=== PATIENT | male | born 1980 | race African-American/Black ===

== ENCOUNTER 2019-03-20 02:10 | Inpatient (IN) | payer OTHER ==
--- NOTE | 2019-03-20 02:15 | PDOC ---
History of Present Illness - General Stated Complaint: ALCOHOL WITHDRAWAL Time Seen by Provider: 03/20/19 02:13 - History of Present Illness Initial Comments: 03/20/19 02:13 Mr. Reyes is a 38 yo male w/ pmh of alcohol abuse and depression who presents for evaluation from detox facility for concerns of withdrawal. Patient reporting he feels anxious. Denies any auditory or visual hallucinations. Last drink approximately this time yesterday morning. Patient reports he typically drinks 8, 24oz beers / day. Denies other drug use. Endorses current headache. Had several episodes of N/V today. The patient denies chest pain, shortness of breath, and dizziness. Denies fever , chills, diarrhea and constipation. Denies dysuria, frequency, urgency and hematuria. Past History - Past Medical History Allergies/Adverse Reactions: Allergies Allergy/AdvReac Type Severity Reaction Status Date / Time No Known Allergies Allergy Verified 03/20/19 02:27 Home Medications: Ambulatory Orders NK [No Known Home Medication] 10/26/15 Anemia: No Asthma: No Cancer: No Cardiac Disorders: No CVA: No COPD: No CHF: No Dementia: No Diabetes: No GI Disorders: No Disorders: No HTN: No Hypercholesterolemia: No Kidney Stones: No Liver Disease: No Seizures: No Thyroid Disease: No - Surgical History Abdominal Surgery: No Appendectomy: No Cardiac Surgery: No Cholecystectomy: No Lung Surgery: No Neurologic Surgery: No Orthopedic Surgery: No - Reproductive History Testicular Surgery: No - Psycho Social/Smoking Cessation Hx Smoking History: Current every day smoker Have you smoked in the past 12 months: Yes Number of Cigarettes Smoked Daily: 5 'Breaking Loose' booklet given: 03/20/19 Hx Alcohol Use: Yes Drug/Substance Use Hx: Yes Substance Use Type: Alcohol, Marijuana Hx Substance Use Treatment: Yes ([facility]) Review of Systems - Review of Systems Comments:: 03/20/19 02:14 GENERAL/CONSTITUTIONAL: No fever or chills. No weakness. HEAD, EYES, EARS, NOSE AND THROAT: No change in vision. No ear pain or discharge. No sore throat. CARDIOVASCULAR: No chest pain or shortness of breath RESPIRATORY: No cough, wheezing, or hemoptysis. GASTROINTESTINAL: +N/V as described. No diarrhea or constipation. GENITOURINARY: No dysuria, frequency, or change in urination. MUSCULOSKELETAL: No joint or muscle swelling or pain. No neck or back pain. SKIN: No rash NEUROLOGIC: +Current headache. No vertigo, loss of consciousness, or change in strength/sensation. ENDOCRINE: No increased thirst. No abnormal weight change HEMATOLOGIC/LYMPHATIC: No anemia, easy bleeding, or history of blood clots. ALLERGIC/IMMUNOLOGIC: No hives or skin allergy. *Physical Exam - Physical Exam Comments: 03/20/19 02:14 GENERAL: Awake, alert, and fully oriented, in no acute distress HEAD: No signs of trauma, normocephalic, atraumatic EYES: PERRLA, EOMI, sclera anicteric, conjunctiva clear ENT: Auricles normal inspection, hearing grossly normal, nares patent, oropharynx clear without exudates. Moist mucosa NECK: Normal ROM, supple, no lymphadenopathy, JVD, or masses LUNGS: No distress, speaks full sentences, clear to auscultation bilaterally HEART: Regular rate and rhythm, normal S1 and S2, no murmurs, rubs or gallops, peripheral pulses normal and equal bilaterally. ABDOMEN: Soft, nontender, normoactive bowel sounds. No guarding, no rebound. No masses EXTREMITIES: Normal inspection, Normal range of motion, no edema. No clubbing or cyanosis. NEUROLOGICAL: Cranial nerves II through XII grossly intact. Normal speech, normal gait, no focal sensorimotor deficits SKIN: Warm, Dry, normal turgor, no rashes or lesions noted. ED Treatment Course - LABORATORY CBC & Chemistry Diagram: 03/20/19 03:00 03/20/19 03:00 Medical Decision Making - Medical Decision Making 03/20/19 02:47 Mr. Reyes is a 38 yo male w/ pmh as described who presents for evaluation of alcohol withdrawal from detox facility. Patient will be medically managed. Workup pending. 03/20/19 04:32 Labs grossly wnl as below. Patient EKG normal sinus. CXR negative. Patient will be admitted for withdrawal medical management. Laboratory Results - last 24 hr 03/20/19 03/20/19 03/20/19 03:00 03:00 03:00 WBC 4.6 RBC 5.41 Hgb 14.1 Hct 43.9 MCV 81.1 MCH 26.0 MCHC 32.1 RDW 15.2 Plt Count 208 D MPV 9.3 Absolute Neuts (auto) 2.8 Neutrophils % 60.3 Lymphocytes % 27.9 Monocytes % 9.1 Eosinophils % 2.5 Basophils % 0.2 Nucleated RBC % 0 Sodium 137 Potassium 4.1 Chloride 98 Carbon Dioxide 32 Anion Gap 7 L BUN 15.8 Creatinine 0.9 Est GFR (CKD-EPI)AfAm 125.13 Est GFR (CKD-EPI)NonAf 107.97 Random Glucose 94 Calcium 9.1 Total Bilirubin 0.7 AST 22 ALT 23 Alkaline Phosphatase 95 Troponin I < 0.02 Total Protein 7.6 Albumin 3.8 Salicylates < 1.7 L Acetaminophen <2.0 Alcohol, Quantitative < 3.0 03/20/19 05:59 Patient admitted to hospitalist team for further evaluation. *DC/Admit/Observation/Transfer Diagnosis at time of Disposition: Alcohol dependence with uncomplicated withdrawal - Discharge Dispostion Decision to Admit order: Yes - Referrals - Patient Instructions - Post Discharge Activity CIWA Score Nausea/Vomitin Muscle Tremors: 4-Moderate,w/Arms Extend Anxiety: 4-Mod. Anxious/Guarded Agitation: 0-Normal Activity Paroxysmal Sweats: No Perspiration Orientation: 0-Oriented Tacttile Disturbances: 2-Mild Itch/Numbness/Burn Auditory Disturbances: 0-None Visual Disturbances: 0-None Headache: 3-Moderate CIWA-Ar Total Score: 18 - Admission Criteria [facility]AS[facility] Guidelines: Admission for Medically Managed Detox: Requires at least one of the followin. CIWA greater than 12 2. Seizures within the past 24 hours 3. Delirium tremens within the past 24 hours 4. Hallucinations within the past 24 hours 5. Acute intervention needed for co occurring medical disorder 6. Acute intervention needed for co occurring psychiatric disorder 7. Severe withdrawal that cannot be handled at a lower level of care (continued vomiting, continued diarrhea, abnormal vital signs) requiring intravenous medication and/or fluids 8. Patient presents the following: CIWA greater than 12 Admission Criteria Met: Admission criteria met
--- NOTE | 2019-03-20 02:22 | PDOC ---
Attending Attestation - Resident Resident Name: AmarinellyCarlos - ED Attending Attestation I have performed the following: I have examined & evaluated the patient, The case was reviewed & discussed with the resident, I agree w/resident's findings & plan - HPI HPI: 03/20/19 03:07 see resident - Physicial Exam PE: 03/20/19 03:08 agree with resident exam - Medical Decision Making 03/20/19 03:09 38 yo male with ETOH withdrawal sent from [facility] for eval initial CIWA 20 plan for medical admit
[2019-03-20] MEDS ORDERED: SODIUM CHLORIDE 1,000 ML IV STA (02:23)
[2019-03-20 02:27] VITALS: BMI 24.9
[2019-03-20] MEDS ORDERED: chlordiazePOXIDE HCL 25 MG CAPSULE PO ONE (02:30)
[2019-03-20] MEDS ORDERED: chlordiazePOXIDE HCL 25 MG CAPSULE ONE ×2 (02:52→12:59)
[2019-03-20] MEDS ORDERED: LORazepam 2 MG/ML SDV VIAL ONE (02:56)
[2019-03-20 03:56] LABS: BASO % 0.2 % (0-2.0); EOS % 2.5 % (0-4.5); HEMATOCRIT 43.9 % (35.4-49); HEMOGLOBIN 14.1 GM/dL (11.7-16.9); LYMPH % 27.9 % (8-40); MCHC 32.1 g/dl (32.0-35.9); MEAN CELL VOLUME 81.1 fl (80-96); MEAN PLT VOLUME 9.3 fl (7.5-11.1); MONO % 9.1 % (3.8-10.2); NEUT % 60.3 % (42.8-82.8); PLATELET COUNT 208 K/MM3 (134-434); RBC 5.41 M/mm3 (4.00-5.60); RDW 15.2 % (11.9-15.9); WHITE BLOOD COUNT 4.6 K/mm3 (4.0-10.0)
[2019-03-20 04:12] LABS: ALBUMIN 3.8 g/dl (3.4-5.0); ALK PHOS 95 U/L (45-117); ANION GAP 7 MMOL/L (8-16); BILIRUBIN,TOTAL 0.7 mg/dL (0.2-1); BLOOD UREA NITROGEN 15.8 mg/dL (7-18); CALCIUM 9.1 mg/dL (8.5-10.1); CHLORIDE 98 mmol/L (98-107); CO2 32 mmol/L (21-32); CREATININE 0.9 mg/dL (0.55-1.3); GLUCOSE,RANDOM 94 mg/dL (74-106); POTASSIUM 4.1 mmol/L (3.5-5.1); SGOT/AST 22 U/L (15-37); SGPT/ALT 23 U/L (13-61); SODIUM 137 mmol/L (136-145); TOT PROT 7.6 g/dl (6.4-8.2)
[2019-03-20] MEDS ORDERED: FOLIC ACID INJECTION - 1 MG, THIAMINE HCL 100 MG, MULTIVIT INJECTION ADULT 10 ML in SOD... IVPB ONE (05:07)
[2019-03-20] MEDS ORDERED: chlordiazePOXIDE HCL 10 MG CAPSULE PO PRN (05:08)
--- NOTE | 2019-03-20 05:09 | PN ---
Teaching Attending Note Name of Resident: Mireya Loja ATTENDING PHYSICIAN STATEMENT I saw and evaluated the patient. I reviewed the resident's note and discussed the case with the resident. I agree with the resident's findings and plan as documented. SUBJECTIVE: 38 yo male w/ alcohol abuse and depression sent from detox facility for concerns of withdrawal. Patient reporting he feels anxious. Denies any auditory or visual hallucinations. Last drink approximately this time yesterday morning. Patient reports he typically drinks 8, 24oz beers/ day. Denies other drug use. OBJECTIVE: Last Vital Signs Temp Pulse Resp BP Pulse Ox 98.3 F 95 H 18 165/100 100 03/20/19 02:25 03/20/19 02:25 03/20/19 02:25 03/20/19 02:25 03/20/19 03:49 gen -nontoxic, sleepy heent -ac, moist mucous membranes cv-s1+s2+rrr chest clear abd -soft, nt ext - no edema Abnormal Lab Results 03/20/19 03/20/19 03:00 03:00 Anion Gap 7 L Salicylates < 1.7 L imaging reviewed ASSESSMENT AND PLAN: etoh withdrawal -med/surg -bed rest, fall precautions -ciwa -iv fluid -banana bag -mv -thiamine -folate -librium detox protocol -ekg -advance diet -urine drug screen -dvt ppx
--- NOTE | 2019-03-20 05:18 | HP ---
CHIEF COMPLAINT: EtOH WD PCP: none HISTORY OF PRESENT ILLNESS: 38 y.o. M PMH EtOH abuse and depression presenting from [facility] ED for EtOH withdrawal. [facility] out of beds so patient sent to [facility]. As per patient his last drink was yesterday in the morning. Pt endorses drinking 3 8oz drinks of hard liquor daily. Says he completed a detox program in the past but has since relapsed. Patient says he did not lose consciousness from drinking too much and never fell down/ hit his head. Never had seizures from WD in the past. He has been tremulous for the past few hours which prompted him to seek medical care. Reports moderate anxiety as well. Denies current CP/ SOB/ HENDERSON/ N/V/D/ feevrs/ chills/ parasthesias. ER course was notable for: (1) BP 156/108---- 165/100 (2) 1L bolus NS; 2mg Ativan; 1 dose 25mg Librium (3) EKG NSR Recent Travel: denies PAST MEDICAL HISTORY: EtOH abuse, depression PAST SURGICAL HISTORY: denies Social History: previously incarcerated, released november 2018 Smoking: denies Alcohol: 3 8oz drinks of hard liquor daily Drugs: denies Allergies No Known Allergies Allergy (Verified 03/20/19 02:27) HOME MEDICATIONS: Home Medications Medication Instructions Recorded NK [No Known Home Medication] 10/26/15 REVIEW OF SYSTEMS CONSTITUTIONAL: Absent: fever, chills, diaphoresis, generalized weakness, malaise, loss of appetite, weight change HEENT: Absent: rhinorrhea, nasal congestion, throat pain, throat swelling, difficulty swallowing, mouth swelling, ear pain, eye pain, visual changes CARDIOVASCULAR: Absent: chest pain, syncope, palpitations, irregular heart rate, lightheadedness , peripheral edema RESPIRATORY: Absent: cough, shortness of breath, dyspnea with exertion, orthopnea, wheezing, stridor, hemoptysis GASTROINTESTINAL: Absent: abdominal pain, abdominal distension, nausea, vomiting, diarrhea, constipation, melena, hematochezia GENITOURINARY: Absent: dysuria, frequency, urgency, hesitancy, hematuria, flank pain, genital pain MUSCULOSKELETAL: Absent: myalgia, arthralgia, joint swelling, back pain, neck pain SKIN: Absent: rash, itching, pallor HEMATOLOGIC/IMMUNOLOGIC: Absent: easy bleeding, easy bruising, lymphadenopathy, frequent infections ENDOCRINE: Absent: unexplained weight gain, unexplained weight loss, heat intolerance, cold intolerance NEUROLOGIC: Absent: headache, focal weakness or paresthesias, dizziness, unsteady gait, seizure, mental status changes, bladder or bowel incontinence PSYCHIATRIC: Absent: anxiety, depression, suicidal or homicidal ideation, hallucinations. PHYSICAL EXAMINATION Vital Signs - 24 hr 03/20/19 03/20/19 02:25 03:49 Temperature 98.3 F Pulse Rate 95 H Respiratory 18 Rate Blood Pressure 165/100 O2 Sat by Pulse 100 100 Oximetry (%) GENERAL: Awake, alert, and fully oriented, in no acute distress. HEENT: Conjunctival injection b/l. PERRLA. No tongue fasciculations present. LUNGS: Breath sounds equal, clear to auscultation bilaterally. No wheezes, and no crackles. No accessory muscle use. HEART: Normal S1 and S2 without murmurs. Tachycardic. ABDOMEN: Soft, nontender, not distended, normoactive bowel sounds UPPER EXTREMITIES: 2+ pulses, warm, well-perfused. No cyanosis. No clubbing. No peripheral edema. LOWER EXTREMITIES: 2+ pulses, warm, well-perfused. No calf tenderness. No peripheral edema. NEURO: No tremors w/ outstretched hands (s/p ativan admin) PSYCH: Guarded, anxious. Denies SI/ HI/ tactile disturbances. Laboratory Results - last 24 hr 03/20/19 03/20/19 03/20/19 03:00 03:00 03:00 WBC 4.6 RBC 5.41 Hgb 14.1 Hct 43.9 MCV 81.1 MCH 26.0 MCHC 32.1 RDW 15.2 Plt Count 208 D MPV 9.3 Absolute Neuts (auto) 2.8 Neutrophils % 60.3 Lymphocytes % 27.9 Monocytes % 9.1 Eosinophils % 2.5 Basophils % 0.2 Nucleated RBC % 0 Sodium 137 Potassium 4.1 Chloride 98 Carbon Dioxide 32 Anion Gap 7 L BUN 15.8 Creatinine 0.9 Est GFR (CKD-EPI)AfAm 125.13 Est GFR (CKD-EPI)NonAf 107.97 Random Glucose 94 Calcium 9.1 Total Bilirubin 0.7 AST 22 ALT 23 Alkaline Phosphatase 95 Troponin I < 0.02 Total Protein 7.6 Albumin 3.8 Salicylates < 1.7 L Acetaminophen <2.0 Alcohol, Quantitative < 3.0 ASSESSMENT/PLAN: 38 y.o. M PMH EtOH abuse and depression presenting for EtOH withdrawal. #EtOH withdrawal -CIWA 19 on admission, now CIWA 5 (s/p 2mg ativan); CIWA checks -Banana bag ordered -S/p 1 L NS bolus -Librium protocol initiated -F/u urine toxicology -Monitor vitals -F/u CXR -F/u lipase -Zofran PRN -Aspiration precautions elevate HOB -Fall precautions -Patient denies suicidal/ homicidal ideations; will hold off psych consult at this time -Patient willing to start detox program #Depression -Denies depressing thoughts at this time -Denies SI/HI -Rec outpatient psych f/u #DVT PPX -LVX 40 SQ #FEN -S/p 1L NS, banana bag ordered -Monitor lytes -CLD Visit type - Emergency Visit Emergency Visit: Yes Care time: The patient presented to the Emergency Department on the above date and was hospitalized for further evaluation of their emergent condition. - New Patient This patient is new to me today: Yes Date on this admission: 03/20/19 - Critical Care Critical Care patient: No ATTENDING PHYSICIAN STATEMENT I saw and evaluated the patient. I reviewed the resident's note and discussed the case with the resident. I agree with the resident's findings and plan as documented. SUBJECTIVE: OBJECTIVE: ASSESSMENT AND PLAN:
[2019-03-20] MEDS ORDERED: ONDANSETRON 4 MG/2 ML VIAL IVPUSH ONE (06:14)
[2019-03-20 06:17] LABS: MAGNESIUM 2.3 mg/dL (1.8-2.4); PHOSPHOROUS 3.6 mg/dL (2.5-4.9)
[2019-03-20 06:30] LABS: LIPASE 91 U/L (73-393)
[2019-03-20] MEDS: chlordiazePOXIDE HCL 25 MG CAPSULE PO SCH ×2 (06:30→13:04)
[2019-03-20] MEDS ORDERED: ONDANSETRON 4 MG/2 ML VIAL ONE (06:59)
[2019-03-20] MEDS ORDERED: ENOXAPARIN NA (PORCINE) 40 MG/0.4 ML DISP.SYRIN SQ SCH (10:00)
--- NOTE | 2019-03-20 10:43 | EKG ---
Test Reason : Blood Pressure : / mmHG Vent. Rate : 093 BPM Atrial Rate : 093 BPM P-R Int : 150 ms QRS Dur : 098 ms QT Int : 362 ms P-R-T Axes : 083 084 067 degrees QTc Int : 450 ms NORMAL SINUS RHYTHM NORMAL ECG NO PREVIOUS ECGS AVAILABLE Confirmed by JAQUELINE BLACKMON, BASIL ([id number]) on 03/20/2019 10:43:12 AM Referred By: Confirmed By:BASIL PARSONS MD
[2019-03-20] MEDS ORDERED: ENOXAPARIN NA (PORCINE) 40 MG/0.4 ML DISP.SYRIN SQ ONE (10:44)
[2019-03-20] MEDS ORDERED: SODIUM CHLORIDE 0.9% 500 ML INFUS.BAG IV ONE (12:00)
[2019-03-20 14:57] VITALS: TEMP 98.4
[2019-03-20] MEDS ORDERED: SODIUM CHLORIDE 1,000 ML IV SCH (15:30)
--- NOTE | 2019-03-20 15:54 | DS ---
Physical Exam: SUBJECTIVE: Patient seen and examined OBJECTIVE: Vital Signs Period Temp Pulse Resp BP Sys/Ann Pulse Ox Last 24 Hr 98.3 F-98.4 F 79-96 15-18 149-165/77-100 98-100 PHYSICAL EXAM GENERAL: The patient is awake, alert, and fully oriented, in no acute distress. HEAD: Normal with no signs of trauma. EYES: PERRL, extraocular movements intact, sclera anicteric, conjunctiva clear. ENT: Ears normal, nares patent, oropharynx clear without exudates, moist mucous membranes. NECK: Trachea midline, full range of motion, supple. LUNGS: Breath sounds equal, clear to auscultation bilaterally, no wheezes, no crackles, no accessory muscle use. HEART: Regular rate and rhythm, S1, S2 without murmur, rub or gallop. ABDOMEN: Soft, nontender, nondistended, normoactive bowel sounds, no guarding, no rebound, no hepatosplenomegaly, no masses. EXTREMITIES: 2+ pulses, warm, well-perfused, no edema. NEUROLOGICAL: Cranial nerves II through XII grossly intact. Normal speech, gait not observed. PSYCH: Normal mood, normal affect. SKIN: Warm, dry, normal turgor, no rashes or lesions noted. LABS Laboratory Results - last 24 hr 03/20/19 03/20/19 03/20/19 03:00 03:00 03:00 WBC 4.6 RBC 5.41 Hgb 14.1 Hct 43.9 MCV 81.1 MCH 26.0 MCHC 32.1 RDW 15.2 Plt Count 208 D MPV 9.3 Absolute Neuts (auto) 2.8 Neutrophils % 60.3 Lymphocytes % 27.9 Monocytes % 9.1 Eosinophils % 2.5 Basophils % 0.2 Nucleated RBC % 0 Sodium 137 Potassium 4.1 Chloride 98 Carbon Dioxide 32 Anion Gap 7 L BUN 15.8 Creatinine 0.9 Est GFR (CKD-EPI)AfAm 125.13 Est GFR (CKD-EPI)NonAf 107.97 Random Glucose 94 Calcium 9.1 Phosphorus 3.6 Magnesium 2.3 Total Bilirubin 0.7 AST 22 ALT 23 Alkaline Phosphatase 95 Troponin I < 0.02 Total Protein 7.6 Albumin 3.8 Lipase 91 Salicylates < 1.7 L Acetaminophen <2.0 Alcohol, Quantitative < 3.0 HOSPITAL COURSE: Mr. Reyes is a 38y/o male with ETOH use disorder and depression who presents for alcohol detox after [facility] did not have beds available. He was hypertensive at presentation and CIWA 19. Pt was started on Librium protocol and was transferred to [facility] once bed was available. Date of Admission:03/20/19 Date of Discharge: 03/20/19 Minutes to complete discharge: 35 Discharge Summary Problems reviewed: Yes Reason For Visit: ALCOHOL DEPENDENCE WITH UNCOMPLICAT WITHDRAWAL Current Active Problems Alcohol dependence with uncomplicated withdrawal (Acute) Alcohol dependence (Chronic) Depression (Chronic) Nicotine dependence (Chronic) Condition: Stable - Instructions Diet, Activity, Other Instructions: Hospital Visit: You were admitted to the hospital to begin alcohol detox. You were started on Librium to treat your symptoms. [facility] has availability where you can continue your detox treatment. Medications: You will continue Librium at [facility]. Other instructions: Return to the emergency room if you experience chest pain, shortness of breath, vomiting that cannot be controlled with medication, or hallucinations. Disposition: I.P. ALCOHOL/SUBS ABUSE REHAB - Home Medications Comprehensive Discharge Medication List: Ambulatory Orders NK [No Known Home Medication] 10/26/15 This patient is new to me today: Yes Date on this admission: 03/20/19 Emergency Visit: Yes ED Registration Date: 03/20/19 Care time: The patient presented to the Emergency Department on the above date and was hospitalized for further evaluation of their emergent condition. Critical Care patient: No - Discharge Referral Referred to [facility] Med P.C.: No ATTENDING PHYSICIAN STATEMENT I saw and evaluated the patient. I reviewed the resident's note and discussed the case with the resident. I agree with the resident's findings and plan as documented. SUBJECTIVE: OBJECTIVE: ASSESSMENT AND PLAN:
[2019-03-20 16:52] LABS: COCAINE, UR POSITIVE ng/ml (CUTOFF=300); METHADONE, UR NEGATIVE ng/ml (CUTOFF=300); OPIATES, URI NEGATIVE ng/ml (CUTOFF=300); PHENCYCLIDINE,URINE NEGATIVE ng/ml (CUTOFF=25); URINE AMPHETAMINES POSITIVE ng/ml (CUTOFF=500); URINE BARBITURATES NEGATIVE ng/ml (CUTOFF=200); URINE BENZODIAZEPINES POSITIVE ng/ml (CUTOFF=200)
[2019-03-20 17:29] VITALS: BP 147/93; PULSE 75
--- NOTE | 2019-03-20 20:01 | PN ---
Teaching Attending Note Name of Resident: Kelly De Luna ATTENDING PHYSICIAN STATEMENT I saw and evaluated the patient. I reviewed the resident's note and discussed the case with the resident. I agree with the resident's findings and plan as documented. SUBJECTIVE: No complaints. No hallucinations/diaphoresis/seizures OBJECTIVE: Afebrile, hemodynamically Stable. Last Vital Signs Temp Pulse Resp BP Pulse Ox 98.4 F 75 18 147/93 99 03/20/19 14:56 03/20/19 17:29 03/20/19 17:29 03/20/19 17:29 03/20/19 17:29 HEENT: Atraumatic, Normocephalic. HEART: S1, S2, RRR LUNGS: Clear to auscultation ABDOMEN: Soft, non-tender. Bowel Sounds normal. EXTREMITIES: No edema, no calf tenderness NEURO: Lethargic, rousable. Oriented x 3. Tone/Power normal all extremities. Laboratory Results - last 24 hr 03/20/19 03/20/19 03/20/19 03:00 03:00 03:00 WBC 4.6 RBC 5.41 Hgb 14.1 Hct 43.9 MCV 81.1 MCH 26.0 MCHC 32.1 RDW 15.2 Plt Count 208 D MPV 9.3 Absolute Neuts (auto) 2.8 Neutrophils % 60.3 Lymphocytes % 27.9 Monocytes % 9.1 Eosinophils % 2.5 Basophils % 0.2 Nucleated RBC % 0 Sodium 137 Potassium 4.1 Chloride 98 Carbon Dioxide 32 Anion Gap 7 L BUN 15.8 Creatinine 0.9 Est GFR (CKD-EPI)AfAm 125.13 Est GFR (CKD-EPI)NonAf 107.97 Random Glucose 94 Calcium 9.1 Phosphorus 3.6 Magnesium 2.3 Total Bilirubin 0.7 AST 22 ALT 23 Alkaline Phosphatase 95 Troponin I < 0.02 Total Protein 7.6 Albumin 3.8 Lipase 91 Salicylates < 1.7 L Opiates Screen Methadone Screen Acetaminophen <2.0 Barbiturate Screen Phencyclidine Screen Ur Amphetamines Screen MDMA (Ecstasy) Screen Benzodiazepines Screen Cocaine Screen U Marijuana (THC) Screen Alcohol, Quantitative < 3.0 03/20/19 14:30 WBC RBC Hgb Hct MCV MCH MCHC RDW Plt Count MPV Absolute Neuts (auto) Neutrophils % Lymphocytes % Monocytes % Eosinophils % Basophils % Nucleated RBC % Sodium Potassium Chloride Carbon Dioxide Anion Gap BUN Creatinine Est GFR (CKD-EPI)AfAm Est GFR (CKD-EPI)NonAf Random Glucose Calcium Phosphorus Magnesium Total Bilirubin AST ALT Alkaline Phosphatase Troponin I Total Protein Albumin Lipase Salicylates Opiates Screen Negative Methadone Screen Negative Acetaminophen Barbiturate Screen Negative Phencyclidine Screen Negative Ur Amphetamines Screen Positive A* MDMA (Ecstasy) Screen Negative Benzodiazepines Screen Positive A* Cocaine Screen Positive A* U Marijuana (THC) Screen Positive A* Alcohol, Quantitative Current Medications Generic Name Dose Route Start Last Admin Trade Name Freq PRN Reason Stop Dose Admin Chlordiazepoxide HCl 10 mg 03/22/19 00:00 Librium - PO 03/22/19 23:59 Q12H PRN Signs/symptoms of Withdrawal Chlordiazepoxide HCl 10 mg 03/20/19 05:08 Librium - PO 03/21/19 23:59 Q8H PRN Signs/symptoms of Withdrawal Chlordiazepoxide HCl 25 mg 03/20/19 05:00 03/20/19 13:04 Librium - PO 03/20/19 21:01 25 mg Q8H CARIN Administration Chlordiazepoxide HCl 15 mg 03/21/19 05:00 Librium - PO 03/21/19 21:01 Q8H CARIN Chlordiazepoxide HCl 10 mg 03/22/19 05:00 Librium - PO 03/22/19 21:01 Q8H CARIN Chlordiazepoxide HCl 10 mg 03/23/19 05:00 Librium - PO 03/23/19 05:01 ONCE ONE Enoxaparin Sodium 40 mg 03/20/19 10:00 03/20/19 10:46 Lovenox - SQ 40 mg DAILY CARIN Administration Sodium Chloride 1,000 mls @ 125 mls/hr 03/20/19 15:30 03/20/19 15:40 Normal Saline - IV 125 mls/hr ASDIR CARIN Administration Home Medications Medication Instructions Recorded NK [No Known Home Medication] 10/26/15 ASSESSMENT AND PLAN: 38 year old male with history of Polysubstance Abuse (Alcohol, Benzos, Amphetamines, Cocaine, MJ), Depression, admitted with Alcohol withdrawal symptoms. 1. Acute Alcohol Withdrawal. Librium protocol. s/p Banana Bag MVI, Thiamine, Folic Acid IV hydration ongoing Electrolytes wnl, will monitor. 2. Polysubstance Abuse - MJ, Benozodiazepines, Alcohol, Amphetamines, Cocaine For transfer to [facility] to complete Detox and obtain addiction medicine eval and treatment for polysubstance abuse. Dispo - Transfer to once bed is available.
[2019-03-21] MEDS ORDERED: chlordiazePOXIDE 5 MG CAPSULE PO SCH (05:00)
[2019-03-22] MEDS ORDERED: chlordiazePOXIDE HCL 10 MG CAPSULE PO PRN
[2019-03-22] MEDS ORDERED: chlordiazePOXIDE HCL 10 MG CAPSULE PO SCH (05:00)
[2019-03-23] MEDS ORDERED: chlordiazePOXIDE HCL 10 MG CAPSULE PO ONE (05:00)
== END 2019-03-20 15:54 | disposition other institution (70) | DRG 58 ==
LOC: JER 02:10 → SUATTDRO 02:10 → JERBED 04:33
PROVIDERS: ADMIT Internal Medicine
PROC: HZ2ZZZZ Detoxification Services for Substance Abuse Treatment (ICD-10-PCS; principal; 2019-03-20)
DX: R25.1 Tremor, unspecified (principal); F10.239 Alcohol dependence with withdrawal, unspecified; F12.10 Cannabis abuse, uncomplicated; F14.10 Cocaine abuse, uncomplicated; F41.9 Anxiety disorder, unspecified; F32.9 Major depressive disorder, single episode, unspecified; R11.2 Nausea with vomiting, unspecified; F17.210 Nicotine dependence, cigarettes, uncomplicated; F15.21 Other stimulant dependence, in remission; F13.20 Sedative, hypnotic or anxiolytic dependence, uncomplicated; R19.7 Diarrhea, unspecified
CPT/HCPCS: 36415; 71045-TC-FY; 80053; 80307; 83690; 83735; 84100; 84484; 85025; 93005; 93010; 99283-25; J7030

== ENCOUNTER 2019-03-20 17:36 | Inpatient (IN) | payer OTHER ==
[2019-03-20 18:27] VITALS: BMI 24.9
--- NOTE | 2019-03-20 19:53 | HP ---
CIWA Score Nausea/Vomitin-Mild Nausea/No Vomiting Muscle Tremors: 4-Moderate,w/Arms Extend Anxiety: 1-Mildly Anxious Agitation: 0-Normal Activity Paroxysmal Sweats: 1-Minimal Palms Moist Orientation: 0-Oriented Tacttile Disturbances: 0-None Auditory Disturbances: 0-None Visual Disturbances: 0-None Headache: 4-Moderately Severe CIWA-Ar Total Score: 11 - Admission Criteria OASAS Guidelines: Admission for Medically Managed Detox: Requires at least one of the followin. CIWA greater than 12 2. Seizures within the past 24 hours 3. Delirium tremens within the past 24 hours 4. Hallucinations within the past 24 hours 5. Acute intervention needed for co occurring medical disorder 6. Acute intervention needed for co occurring psychiatric disorder 7. Severe withdrawal that cannot be handled at a lower level of care (continued vomiting, continued diarrhea, abnormal vital signs) requiring intravenous medication and/or fluids 8. Patient presents the following: Acute intervention needed for co-occurring med or psych disorder (Transferred from Ed and given ativan and Librium prior to presentation to [facility] detox.) Admission Criteria Met: Admission criteria met Admission ROS [facility] - [facility] Chief Complaint: I was intoxicated and then started withdrawing and I was medicated in the ER". Allergies/Adverse Reactions: Allergies Allergy/AdvReac Type Severity Reaction Status Date / Time No Known Allergies Allergy Verified 03/20/19 02:27 History of Present Illness: Patient transferred from [facility], after being given ativan and then started on Libruim for alcohol withdrawal and presents for admission to detox. 03/20/19 CBC/Chem labs reviewed. Will not repeat. 03/20/19: EKG - wnl Alcohol use began at age 18. Currently drinks 10-24 oz beers daily. Denies vodka Marijuana use began at age 18. Crystal Meth use began at age 34. States uses/smokes every other day. Nicotine use began at age 18. Currently smokes 1 PPD. PMHx: Darkened skin in BLE. Burning/pain w/ urination x 2 months. MHHx: Depression. Insomnia. Was prescribed Zoloft and Remeron but hasn't taken for 4 months. SHx: Homeless. Unemployed. Search Terms: Ha Reyes, 1980 Search Date: 03/20/2019 08:07:15 PM The Drug Utilization Report below displays all of the controlled substance prescriptions, if any, that your patient has filled in the last twelve months. The information displayed on this report is compiled from pharmacy submissions to the Department, and accurately reflects the information as submitted by the pharmacies. This report was requested by: Jessie Kemp | Reference #: [id number] There are no results for the search terms that you entered. PE from [facility] reviewed and no significant changes. - Review of Systems in ED Comments:: 03/20/19 02:14 GENERAL/CONSTITUTIONAL: No fever or chills. No weakness. HEAD, EYES, EARS, NOSE AND THROAT: No change in vision. No ear pain or discharge. No sore throat. CARDIOVASCULAR: No chest pain or shortness of breath RESPIRATORY: No cough, wheezing, or hemoptysis. GASTROINTESTINAL: +N/V as described. No diarrhea or constipation. GENITOURINARY: No dysuria, frequency, or change in urination. MUSCULOSKELETAL: No joint or muscle swelling or pain. No neck or back pain. SKIN: No rash NEUROLOGIC: +Current headache. No vertigo, loss of consciousness, or change in strength/sensation. ENDOCRINE: No increased thirst. No abnormal weight change HEMATOLOGIC/LYMPHATIC: No anemia, easy bleeding, or history of blood clots. ALLERGIC/IMMUNOLOGIC: No hives or skin allergy. *Physical Exam in ED - Physical Exam Comments: 03/20/19 02:14 GENERAL: Awake, alert, and fully oriented, in no acute distress HEAD: No signs of trauma, normocephalic, atraumatic EYES: PERRLA, EOMI, sclera anicteric, conjunctiva clear ENT: Auricles normal inspection, hearing grossly normal, nares patent, oropharynx clear without exudates. Moist mucosa NECK: Normal ROM, supple, no lymphadenopathy, JVD, or masses LUNGS: No distress, speaks full sentences, clear to auscultation bilaterally HEART: Regular rate and rhythm, normal S1 and S2, no murmurs, rubs or gallops, peripheral pulses normal and equal bilaterally. ABDOMEN: Soft, nontender, normoactive bowel sounds. No guarding, no rebound. No masses EXTREMITIES: Normal inspection, Normal range of motion, no edema. No clubbing or cyanosis. NEUROLOGICAL: Cranial nerves II through XII grossly intact. Normal speech, normal gait, no focal sensorimotor deficits SKIN: Warm, Dry, normal turgor, no rashes or lesions noted. CIWA Score in [facility] ED Nausea/Vomitin Muscle Tremors: 4-Moderate,w/Arms Extend Anxiety: 4-Mod. Anxious/Guarded Agitation: 0-Normal Activity Paroxysmal Sweats: No Perspiration Orientation: 0-Oriented Tacttile Disturbances: 2-Mild Itch/Numbness/Burn Auditory Disturbances: 0-None Visual Disturbances: 0-None Headache: 3-Moderate CIWA-Ar Total Score: 18 - Admission Criteria OASAS Guidelines: Admission for Medically Managed Detox: Requires at least one of the followin. CIWA greater than 12 2. Seizures within the past 24 hours 3. Delirium tremens within the past 24 hours 4. Hallucinations within the past 24 hours 5. Acute intervention needed for co occurring medical disorder 6. Acute intervention needed for co occurring psychiatric disorder 7. Severe withdrawal that cannot be handled at a lower level of care (continued vomiting, continued diarrhea, abnormal vital signs) requiring intravenous medication and/or fluids 8. Patient presents the following: CIWA greater than 12 Admission Criteria Met: Admission criteria met Exam Limitations: No Limitations - Ebola screening Have you traveled outside of the country in the last 21 days: No (N) Have you had contact with anyone from an Ebola affected area: No Do you have a fever: No - Review of Systems Constitutional: See HPI EENT: reports: See HPI Respiratory: reports: See HPI Cardiac: reports: See HPI GI: reports: See HPI : reports: Burning (w/ urination x 2 months. States sexually active w/ inconsistent use of condoms.) Musculoskeletal: reports: See HPI Integumentary: reports: See HPI Neuro: reports: See HPI Endocrine: reports: See HPI Hematology: reports: See HPI Psychiatric: reports: Mood/Affect Appropiate, Orientated x3, Agitated, Anxious, Depressed (Denies thoughts of harming self or others) Patient History - Patient Medical History Hx Anemia: No Hx Asthma: No Hx Chronic Obstructive Pulmonary Disease (COPD): No Hx Cancer: No Hx Cardiac Disorders: No Hx Congestive Heart Failure: No Hx Hypertension: No Hx Hypercholesterolemia: No HX Cerebrovascular Accident: No Hx Seizures: No Hx Dementia: No Hx Diabetes: No Hx Gastrointestinal Disorders: No Hx Liver Disease: No Hx Genitourinary Disorders: No Hx Sexually Transmitted Disorders: No Hx Renal Disease (ESRD): No Hx Thyroid Disease: No Hx Human Immunodeficiency Virus (HIV): No (NEGATIVE 2019) Hx Hepatitis C: No Hx Depression: Yes (NOT CURRENTLY ON MED) Hx Suicide Attempt: No (DENIES SUICIDAL IDEATION AT THIS TIME) Hx Bipolar Disorder: No Hx Schizophrenia: No - Patient Surgical History Past Surgical History: No Hx Neurologic Surgery: No Hx Cataract Extraction: No Hx Cardiac Surgery: No Hx Lung Surgery: No Hx Breast Surgery: No Hx Breast Biopsy: No Hx Abdominal Surgery: No Hx Appendectomy: No Hx Cholecystectomy: No Hx Genitourinary Surgery: No Hx Section: No Hx Orthopedic Surgery: No Anesthesia Reaction: No - PPD History Previous Implant?: Yes Documented Results: Negative w/proof Implanted On Prior R Admission?: Yes Date: 10/28/15 Results: 0 MM PPD to be Administered?: Yes - Smoking Cessation Smoking history: Current every day smoker Have you smoked in the past 12 months: Yes Aproximately how many cigarettes per day: 10 Hx Chewing Tobacco Use: No Initiated information on smoking cessation: Yes 'Breaking Loose' booklet given: 03/20/19 - Substance & Tx. History Hx Alcohol Use: Yes Hx Substance Use: Yes Substance Use Type: Alcohol, Marijuana, Tranquilizers (Methamphetamin) Hx Substance Use Treatment: Yes (detox, ) - Substances abused Alcohol Substance route: Oral Frequency: Daily Amount used: 3 pints of vodka Age of first use: 18 Date of last use: 03/18/19 Admission Physical Exam BHS - Vital Signs Vital Signs: Vital Signs - 24 hr 03/20/19 18:12 Temperature 98.6 F Pulse Rate 88 Respiratory 20 Rate Blood Pressure 148/96 - Physical General Appearance: Yes: Nourished, Mild Distress, Tremorous, Sweating ( Increased facial moisture.) HEENTM: Yes: CACHORRO Respiratory: Yes: Lungs Clear, Normal Breath Sounds, No Respiratory Distress Extremities: Yes: Tremors Neurological: Yes: Fully Oriented, Alert Integumentary: Yes: Normal Color, Warm, Diaphoresis, Other (Thickened, darkened skin BLE) - Diagnostic (1) Methamphetamine dependence Current Visit: Yes Status: Chronic (2) Cannabis dependence, uncomplicated Current Visit: Yes Status: Chronic (3) Alcohol dependence with uncomplicated withdrawal Current Visit: Yes Status: Acute (4) Nicotine dependence Current Visit: Yes Status: Chronic Qualifiers: Nicotine product type: cigarettes Substance use status: uncomplicated Qualified Code(s): F17.210 - Nicotine dependence, cigarettes, uncomplicated (5) Burning with urination Current Visit: Yes Status: Chronic Comment: State burning w/ urination x 2 months. Sexually active. Cleared for Admission S - Detox or Rehab [facility] Level of Care: Medically Managed Detox Regimen/Protocol: Librium Claeared for Rehab Admission: No Breathalyzer - Breathalyzer Breathalyzer: 0 Urine Drug Screen - Test Device Lot number: [id number] Expiration date: 11/23/20 - Control Is test valid?: Yes - Results Drug screen NEGATIVE: No Urine drug screen results: THC-Marijuana, MET-Methamphetamine, BZO- Benzodiazepines Inpatient Rehab Admission - Rehab Decision to Admit Inpatient rehab admission?: No
[2019-03-20] MEDS ORDERED: MAG HYDROX/AL HYDROX/SIMETH 30 ML UNIT-DOSE CUP PO PRN (20:31)
[2019-03-20] MEDS ORDERED: MENTHOL/PHENOL 1 EACH UD MM PRN (20:31)
[2019-03-20] MEDS ORDERED: chlordiazePOXIDE HCL 25 MG CAPSULE PO PRN (20:31)
[2019-03-20] MEDS ORDERED: IBUPROFEN 400 MG TABLET (FP) PO PRN (20:31)
[2019-03-20] MEDS ORDERED: NICOTINE POLACRILEX 2 MG GUM BUC PRN (20:31)
[2019-03-20] MEDS ORDERED: METHOCARBAMOL 500 MG TABLET PO PRN (20:31)
[2019-03-20] MEDS ORDERED: MAGNESIUM CITRATE 300 ML BOTTLE PO PRN (20:31)
[2019-03-20] MEDS ORDERED: MAGNESIUM HYDROX 2400MG/30ML ORAL SUSPENSION 30 ML CUP PO PRN (20:31)
[2019-03-20] MEDS ORDERED: BISMUTH SUBSALICYLATE 524 MG/30 ML UD PO PRN (20:31)
[2019-03-20] MEDS ORDERED: ACETAMINOPHEN 325 MG TABLET (FP) PO PRN ×2 (20:31)
[2019-03-20] MEDS: THIAMINE HCL 100 MG TABLET (FP) PO SCH (21:34)
[2019-03-20] MEDS: MELATONIN 5 MG TABLETS PO PRN (21:35)
[2019-03-20] MEDS: chlordiazePOXIDE HCL 25 MG CAPSULE PO SCH (22:30)
[2019-03-21] MEDS: chlordiazePOXIDE HCL 25 MG CAPSULE PO SCH ×4 (06:21→22:03)
[2019-03-21] MEDS: PRENATAL VITAMINS W/ FOLIC ACID TABLET (FP) PO SCH (10:40)
[2019-03-21] MEDS: NICOTINE 14 MG/24 HOURS TOPICAL PATCH TD SCH (10:42)
--- NOTE | 2019-03-21 12:57 | PN ---
S CIWA - CIWA Score Nausea/Vomitin-Mild Nausea/No Vomiting Muscle Tremors: 3 Anxiety: 4-Mod. Anxious/Guarded Agitation: 3 Paroxysmal Sweats: 2 Orientation: 0-Oriented Tacttile Disturbances: 1-Very Mild Itch/Numbness Auditory Disturbances: 0-None Visual Disturbances: 0-None Headache: 0-None Present CIWA-Ar Total Score: 14 BHS Progress Note (SOAP) Subjective: limited conversation with staff resting on bed comfortably ate breakfast prefer to stay in bed today Objective: 03/21/19 12:57 Vital Signs Temperature 96.7 F L 03/21/19 09:40 Pulse Rate 68 03/21/19 09:40 Respiratory Rate 18 03/21/19 09:40 Blood Pressure 143/84 03/21/19 09:40 O2 Sat by Pulse Oximetry (%) Laboratory Last Values RPR Titer Nonreactive (NONREACTIVE) 03/21/19 08:00 03/21/19 13:00 lab see ER 03/20/19 Assessment: 03/21/19 13:00 return from ER treated with alcohol intoxification doing well with librium detox regimen alert oriented x 3 speech clearly coherently steady gait 03/21/19 13:02 alcohol withdrawal sx Plan: continue librium detox regimen
--- NOTE | 2019-03-21 14:08 | CONSULT ---
[facility] Psychiatric Consult - Data Date of interview: 03/21/19 Admission source: [facility] Identifying data: Patient is a 38 year old single male, father of one, unemployed, homeless, and is not receiving financial assistance. This is patient's first admission to detox at [facility]. Patient admitted to for alcohol dependence. Substance Abuse History: Smoking Cessation. Smoking history: Current every day smoker. Have you smoked in the past 12 months: Yes. Aproximately how many cigarettes per day: 10. Hx Chewing Tobacco Use: No. Initiated information on smoking cessation: Yes. 'Breaking Loose' booklet given: 03/20/19. - Substance & Tx. History. Hx Alcohol Use: Yes. Hx Substance Use: Yes. Substance Use Type : Alcohol, Marijuana, Tranquilizers (Methamphetamin). Hx Substance Use Treatment: Yes (detox, ). - Substances abused. Alcohol. Substance route: Oral. Frequency: Daily. Amount used: 3 pints of vodka. Age of first use: 18. Date of last use: 03/18/19 Psychiatric History: Patient reports history of psychiatric hospitalizations, most recently in [address] [facility] after feeling depressed. Diagnosis of Major depressive disorder and was prescribed zoloft 100mg. He reports additional hospitalizations at [facility]. States he was in [facility] one year ago and was prescribed zoloft 100mg + Remeron 15mg HS. He was released from [facility] three months ago and was unable to receive his prescriptions due to problems with his insurance. At present, patient is tearful and reports feeling depressed. Stated to typewriter repairer that the mother of his child three years ago and since then her family has had custody of his child. Will restart zoloft and remeron. Patient denies thought or urges to hurt self or others. Physical/Sexual Abuse/Trauma History: denies. Mental Status Exam - Mental Status Exam Alert and Oriented to: Time, Place, Person Cognitive Function: Good Patient Appearance: Well Groomed Mood: Sad Affect: Mood Congruent Patient Behavior: Cooperative Speech Pattern: Appropriate Voice Loudness: Normal Thought Process: Goal Oriented Thought Disorder: Not Present Hallucinations: Denies Suicidal Ideation: Denies Homicidal Ideation: Denies Insight/Judgement: Poor Sleep: Poorly Appetite: Fair Muscle strength/Tone: Normal Gait/Station: Normal Psychiatric Findings - Problem List ([place] 1, 2,3) (1) Alcohol dependence with uncomplicated withdrawal Current Visit: Yes Status: Acute (2) Alcohol dependence Current Visit: Yes Status: Chronic Qualifiers: Substance use status: uncomplicated Qualified Code(s): F10.20 - Alcohol dependence, uncomplicated (3) Cannabis dependence, uncomplicated Current Visit: Yes Status: Chronic (4) Methamphetamine dependence Current Visit: Yes Status: Chronic (5) Nicotine dependence Current Visit: Yes Status: Chronic Qualifiers: Nicotine product type: cigarettes Substance use status: uncomplicated Qualified Code(s): F17.210 - Nicotine dependence, cigarettes, uncomplicated (6) Substance induced mood disorder Current Visit: Yes Status: Acute (7) Depressive disorder Current Visit: Yes Status: Acute - Initial Treatment Plan Initial Treatment Plan: Psychoeducation provided. Rehab in progress. Will order zoloft 50mg + Remeron 15mg HS. Benefits and side effects discussed. Verbal consent given.
[2019-03-21] MEDS: MIRTAZAPINE 15 MG TABLET (FP) PO SCH (22:03)
[2019-03-21] MEDS: MELATONIN 5 MG TABLETS PO PRN (22:03)
[2019-03-21] MEDS: THIAMINE HCL 100 MG TABLET (FP) PO SCH (22:03)
[2019-03-22] MEDS: chlordiazePOXIDE HCL 25 MG CAPSULE PO SCH ×4 (06:56→22:05)
[2019-03-22] MEDS: SERTRALINE HCL 50 MG TABLET (FP) PO SCH (11:45)
[2019-03-22] MEDS: NICOTINE 14 MG/24 HOURS TOPICAL PATCH TD SCH (11:45)
[2019-03-22] MEDS: PRENATAL VITAMINS W/ FOLIC ACID TABLET (FP) PO SCH (11:45)
--- NOTE | 2019-03-22 13:54 | PN ---
S Progress Note Note: Patient reports wishes to discharge on Monday03/24/19 d/t need to followup with family court on Monday03/25/19.
--- NOTE | 2019-03-22 17:11 | PN ---
[facility] CIWA - CIWA Score Nausea/Vomitin Muscle Tremors: 3 Anxiety: 3 Agitation: 2 Paroxysmal Sweats: No Perspiration Orientation: 0-Oriented Tacttile Disturbances: 0-None Auditory Disturbances: 0-None Visual Disturbances: 0-None Headache: 0-None Present CIWA-Ar Total Score: 10 [facility] Progress Note (SOAP) Subjective: Nausea, Anxious, Tremors, Poor Appetite. Objective: PATIENT A & O X 3, OBSERVED AMBULATING ON DETOX UNIT UNASSISTED. IN NO ACUTE DISTRESS. 03/22/19 17:09 Vital Signs Temperature 96.6 F L 03/22/19 14:17 Pulse Rate 84 03/22/19 14:17 Respiratory Rate 18 03/22/19 14:17 Blood Pressure 140/92 03/22/19 14:17 O2 Sat by Pulse Oximetry (%) Laboratory Tests 03/21/19 08:00 RPR Titer Nonreactive RESULTS OF ADMISSION LABS NOTED. 03/22/19 17:10 Assessment: 03/22/19 17:10 WITHDRAWAL SYMPTOMS. Plan: CONTINUE DETOX.
[2019-03-22] MEDS: MIRTAZAPINE 15 MG TABLET (FP) PO SCH (22:05)
[2019-03-22] MEDS: THIAMINE HCL 100 MG TABLET (FP) PO SCH (22:05)
[2019-03-22] MEDS: MELATONIN 5 MG TABLETS PO PRN (22:06)
[2019-03-23] MEDS ORDERED: chlordiazePOXIDE HCL 10 MG CAPSULE PO PRN
[2019-03-23] MEDS: chlordiazePOXIDE HCL 10 MG CAPSULE PO SCH ×3 (06:08→16:50)
[2019-03-23] MEDS: PRENATAL VITAMINS W/ FOLIC ACID TABLET (FP) PO SCH (12:07)
[2019-03-23] MEDS: NICOTINE 14 MG/24 HOURS TOPICAL PATCH TD SCH (12:07)
[2019-03-23] MEDS: SERTRALINE HCL 50 MG TABLET (FP) PO SCH (12:07)
--- NOTE | 2019-03-23 12:28 | PN ---
[facility] Progress Note Note: Psychiatry Attending's note : Called by medical FEED CRUSHER OPERATOR Danny Mathews to enter prescriptions. For sertraline + mirtazapine. Chart reviewed. tree warden Berny's note of 03/21/19 : appreciated. Medications confirmed. Patient seen. Side effects/benefits : rediscussed. Mr Reyes denies experiencing side effects. Feels much better. Improved sleep. Stable mental status. Medications : sertraline 50 mg/daily + remeron 15 mg/hs. Scripts sent electronically to [facility] (30-day supply).
--- NOTE | 2019-03-23 17:42 | PN ---
S CIWA - CIWA Score Nausea/Vomitin-No Nausea/No Vomiting Muscle Tremors: 2 Anxiety: 3 Agitation: 1-Slight > Activity Paroxysmal Sweats: No Perspiration Orientation: 2-Disoriented Date<2 days Tacttile Disturbances: 0-None Auditory Disturbances: 0-None Visual Disturbances: 0-None Headache: 0-None Present CIWA-Ar Total Score: 8 [facility] Progress Note (SOAP) Subjective: Anxious, Tremors. Patient reports That Current withdrawal Detox Symptoms in General Are Subsiding in Severity. Objective: PATIENT A & O X 2 (UNCERTAIN ABOUT CURRENT DAY/ DATE). PATIENT OBSERVED AMBULATING ON DETOX UNIT UNASSISTED. IN NO ACUTE DISTRESS. 03/23/19 17:38 Vital Signs Temperature 97.8 F 03/23/19 17:19 Pulse Rate 73 03/23/19 17:19 Respiratory Rate 18 03/23/19 17:19 Blood Pressure 137/94 03/23/19 17:19 O2 Sat by Pulse Oximetry (%) Laboratory Tests 03/21/19 08:00 RPR Titer Nonreactive PATIENT REPORTS THAT HIS BP ONLY TENDS TO BE ELEVATED WHEN HE IS IN WITHDRAWAL. LABS NOTED. 03/23/19 17:41 Assessment: 03/23/19 17:41 WITHDRAWAL SYMPTOMS. Plan: CONTINUE DETOX. PATIENT REPORTS THAT HE IS TOLERATING CURRENT WITHDRAWAL / DETOX SYMPTOMS WELL. AT PATIENT'S REQUEST, CURRENT DETOX MEDICATION REGIMEN (LIBRIUM) MODIFIED SO THAT PATIENT MAY BE DISCHARGED TOMORROW, 03/24/2019.
[2019-03-23] MEDS: THIAMINE HCL 100 MG TABLET (FP) PO SCH (22:14)
[2019-03-23] MEDS: MIRTAZAPINE 15 MG TABLET (FP) PO SCH (22:14)
[2019-03-23] MEDS ORDERED: chlordiazePOXIDE HCL 10 MG CAPSULE PO ONE (23:00)
[2019-03-24] MEDS ORDERED: chlordiazePOXIDE HCL 10 MG CAPSULE PO SCH (05:00)
[2019-03-24] MEDS ORDERED: chlordiazePOXIDE HCL 10 MG CAPSULE PO ONE (05:00)
[2019-03-24 06:23] VITALS: BP 143/81; PULSE 65; TEMP 97.1
--- NOTE | 2019-03-24 12:32 | DS ---
[facility] Detox Discharge Summary Admission Date: 03/20/19 Discharge Date: 03/24/19 - History Present History: Alcohol Dependence Additional Comments: did well with librium detox regimen no complication throughout the detox stay seen by psychiatrist treated with zoloft and remeron patient tolerate well patient is alert oriented x [address] on monday cardiac [id number] regular rate rhythm respiratory clear lung bilaterally on auscultation - Physical Exam Results Vital Signs: Vital Signs Temperature 97.1 F L 03/24/19 06:22 Pulse Rate 65 03/24/19 06:22 Respiratory Rate 18 03/24/19 06:22 Blood Pressure 143/81 03/24/19 06:22 O2 Sat by Pulse Oximetry (%) Pertinent Admission Physical Exam Findings: alcohol withdrawal sx Laboratory Last Values RPR Titer Nonreactive (NONREACTIVE) 03/21/19 08:00 lab see 03/20/19 ER report - Treatment Hospital Course: Detox Protocol Followed, Detoxed Safely, Responded well, Discharged Condition Good, Rehab Referral Accepted Patient has Accepted a Rehab Referral to: [facility] - Medication Discharge Medications: Ambulatory Orders Mirtazapine [Remeron -] 15 mg PO HS #30 tablet 03/23/19 Sertraline HCl [Zoloft -] 50 mg PO DAILY #30 tablet 03/23/19 - Diagnosis (1) Alcohol dependence with uncomplicated withdrawal Status: Acute (2) Substance induced mood disorder Status: Suspected (3) Nicotine dependence Status: Acute Qualifiers: Nicotine product type: cigarettes Substance use status: in withdrawal Qualified Code(s): F17.213 - Nicotine dependence, cigarettes, with withdrawal - AMA Did Patient Leave Against Medical Advice: No CIWA Score - CIWA Score Nausea/Vomitin-No Nausea/No Vomiting Muscle Tremors: 1-None Visible, but [place] Anxiety: 2 Agitation: 0-Normal Activity Paroxysmal Sweats: No Perspiration Orientation: 0-Oriented Tacttile Disturbances: 0-None Auditory Disturbances: 0-None Visual Disturbances: 0-None Headache: 0-None Present CIWA-Ar Total Score: 3
[2019-03-25] MEDS ORDERED: chlordiazePOXIDE HCL 10 MG CAPSULE PO ONE (05:00)
== END 2019-03-24 09:36 | disposition home or self-care (01) | DRG 775 ==
LOC: YASAS 17:36 → Y3N 20:44
PROVIDERS: ADMIT Surgery; ATTEND Surgery
PROC: HZ2ZZZZ Detoxification Services for Substance Abuse Treatment (ICD-10-PCS; principal; 2019-03-20)
DX: F10.230 Alcohol dependence with withdrawal, uncomplicated (principal); F15.20 Other stimulant dependence, uncomplicated; F12.20 Cannabis dependence, uncomplicated; F19.24 Other psychoactive substance dependence with psychoactive substance-induced mood disorder; F32.9 Major depressive disorder, single episode, unspecified; R30.0 Dysuria
CPT/HCPCS: 36415; 86593